=== PATIENT | male | born 1970 | race Caucasian/White ===

== ENCOUNTER 2018-06-16 13:59 | Emergency (ER) | payer BC ==
--- NOTE | 2018-06-16 15:41 | RAD REPORT ---
EXAM DESCRIPTION: CT - Head Brain Wo Cont - 06/16/2018 3:16 pm CLINICAL HISTORY: PAIN Headache, syncope COMPARISON: Head C Spine Mpr Wo Con dated 03/22/2017 TECHNIQUE: All CT scans are performed using dose optimization technique as appropriate and may inclu de automated exposure control or mA/KV adjustment according to patient size. FINDINGS: No intracranial hemorrhage, hydrocephalus or extra-axial fluid collection.No areas of brai n edema or evidence of midline shift. The paranasal sinuses and mastoids are clear. The calvarium is intact. IMPRESSION: No acute intracranial abnormality.
[2018-06-16 15:57] LABS: Absolute Lymphocytes (CBC) 1.2 K/uL (0.7-4.9); Absolute Monocytes 0.7 K/uL (0.1-1.3); Absolute Neutrophil 6.7 K/uL (1.8-8.0); Basophils % 0.2 % (0-1.3); Eosinophils % 0.9 % (0-4.4); Hematocrit 42.9 % (39.6-49.0); Lymphocytes % 14.1 % (15.3-44.8); MCH 31.5 pg (27.0-35.0); MCV 90.2 fL (80-100); MPV 8.1 fL (7.6-11.3); Monocytes % 7.9 % (3.3-12.3); RBC Red Blood Cell Count 4.76 M/uL (4.33-5.43)
[2018-06-16 16:02] LABS: Protime INR 1.01
--- NOTE | 2018-06-16 16:37 | RAD REPORT ---
EXAM DESCRIPTION: RAD - Chest Single View - 06/16/2018 4:31 pm CLINICAL HISTORY: CHEST PAIN Chest pain. COMPARISON: Chest Single View dated 10/25/2016; Chest Single View dated 08/21/2016; Chest Single View dated 02/28/2016; CHEST SINGLE VIEW dated 12/22/2013 FINDINGS: Portable technique limits examination quality. The lungs are grossly clear. The heart is normal in size. No displaced fractures. IMPRESSION: No acute intrathoracic process suspected.
[2018-06-16 16:47] LABS: BUN Blood Urea Nitrogen 17 mg/dL (7-18); Bicarbonate 31 mmol/L (21-32); CKMB Creatine Kinase MB 1.2 ng/mL (0.3-3.6); Glucose Level 101 mg/dL (74-106); NT PRO-BNP 7 pg/mL (<125); Sodium Level 137 mmol/L (136-145); Troponin (Emerg Dept Use Only) < 0.02 ng/mL (0.0-0.045)
[2018-06-16 16:48] LABS: Creatine Phosphokinase 266 U/L (39-308); Magnesium 2.4 mg/dL (1.8-2.4); Potassium 4.9 mmol/L (3.5-5.1)
--- NOTE | 2018-06-16 17:20 | EDPHYS ---
Physician Documentation [facility] Name: Julius Capellan Age: 47 yrs Sex: Male : 1970 Arrival Date: 06/16/2018 Time: 14:03 Bed 26 Private MD: ED Physician Jac Gonzalez HPI: 06/16 17:07 This 47 yrs old Male presents to ER via Ambulatory with complaints of Chest kb Pain, Nausea, Neck Pain, <24hrs Old, Dizziness. 17:07 The patient presents with abdominal pain in the left upper quadrant. Onset: The kb symptoms/episode began/occurred this morning. The symptoms radiate to chest. Associated signs and symptoms: Pertinent positives: chest pain, dizziness, muscle cramps/spasms. The symptoms are described as crampy. Modifying factors: The symptoms are alleviated by nothing, the symptoms are aggravated by nothing. Severity of pain: At its worst the pain was moderate in the emergency department the pain is unchanged. The patient has not experienced similar symptoms in the past. The patient has not recently seen a physician. 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 Went inside to rest, but still had the symptoms after being inside for a while so he wanted to come get checked out.. Historical: - Allergies: 14:14 No Known Allergies; hj - Home Meds: 14:14 Suboxone [Active]; gemfibrozil 600 mg Oral tab 1 tab 2 times per day [Active]; losartan-hydrochlorothiazide 100-25 mg oral tab 1 tab once daily [Active]; - PMHx: 14:14 Hyperlipidemia; Hypertension; hj - PSHx: 14:14 Hernia repair; L knee; hj - Immunization history:: Adult Immunizations up to date. - Social history:: Smoking status: Patient uses tobacco products, smokes one pack cigarettes per day. Patient uses alcohol, occasionally. - Ebola Screening: : Patient negative for fever greater than or equal to 101.5 degrees Fahrenheit, and additional compatible Ebola Virus Disease symptoms Patient denies exposure to infectious person Patient denies travel to an Ebola-affected area in the 21 days before illness onset. ROS: 17:06 Constitutional: Negative for fever, chills, and weight loss, ENT: Negative for injury, kb pain, and discharge, Neck: Negative for injury, pain, and swelling, Cardiovascular: Negative for chest pain, palpitations, and edema, Respiratory: Negative for shortness of breath, cough, wheezing, and pleuritic chest pain, : Negative for injury, bleeding, discharge, and swelling, MS/Extremity: Negative for injury and deformity, Skin: Negative for injury, rash, and discoloration. 17:06 Abdomen/GI: Positive for abdominal pain. 17:06 Back: Positive for muscle cramps/spasms. 17:06 Neuro: Positive for dizziness. Exam: 17:06 Constitutional: This is a well developed, well nourished patient who is awake, alert, kb and in no acute distress. Head/Face: Normocephalic, atraumatic. Eyes: Pupils equal round and reactive to light, extra-ocular motions intact. Lids and lashes normal. Conjunctiva and sclera are non-icteric and not injected. Cornea within normal limits. Periorbital areas with no swelling, redness, or edema. ENT: Nares patent. No nasal discharge, no septal abnormalities noted. Tympanic membranes are normal and external auditory canals are clear. Oropharynx with no redness, swelling, or masses, exudates, or evidence of obstruction, uvula midline. Mucous membranes moist. Chest/axilla: Normal chest wall appearance and motion. Nontender with no deformity. No lesions are appreciated. Cardiovascular: Regular rate and rhythm with a normal S1 and S2. No gallops, murmurs, or rubs. Normal PMI, no JVD. No pulse deficits. Respiratory: Lungs have equal breath sounds bilaterally, clear to auscultation and percussion. No rales, rhonchi or wheezes noted. No increased work of breathing, no retractions or nasal flaring. Abdomen/GI: Soft, non-tender, with normal bowel sounds. No distension or tympany. No guarding or rebound. No evidence of tenderness throughout. Skin: Warm, dry with normal turgor. Normal color with no rashes, no lesions, and no evidence of cellulitis. MS/ Extremity: Pulses equal, no cyanosis. Neurovascular intact. Full, normal range of motion. Neuro: Awake and alert, GCS 15, oriented to person, place, time, and situation. Cranial nerves II-XII grossly intact. Motor strength 5/5 in all extremities. Sensory grossly intact. Cerebellar exam normal. Normal gait. Vital Signs: 14:15 BP 109 / 70; Pulse 98; Resp 18; Temp 98.0(O); Pulse Ox 96% on R/A; Weight 118.39 kg; hj Height 6 ft. 1 in. (185.42 cm); Pain 3/10; 15:00 BP 94 / 73 Supine; Pulse 93 LA; mb4 15:04 BP 112 / 85 LA Sitting (auto/lg); Pulse 86 MON; mb4 15:08 BP 121 / 88 LA Standing (auto/lg); Pulse 94 MON; mb4 16:08 BP 108 / 81 LA Sitting (auto/lg); Pulse 77; mb4 17:17 BP 132 / 93; Pulse 83; Resp 18; Pulse Ox 97% on R/A; tl3 14:15 Body Mass Index 34.43 (118.39 kg, 185.42 cm) hj MDM: 14:32 Patient medically screened. kb 17:06 Data reviewed: vital signs, nurses notes. Data interpreted: Pulse oximetry: on room air kb is 96 %. Interpretation: normal. 17:11 Counseling: I had a detailed discussion with the patient and/or guardian regarding: the kb historical points, exam findings, and any diagnostic results supporting the discharge/admit diagnosis, lab results, radiology results, the need for outpatient follow up, a family practitioner, to return to the emergency department if symptoms worsen or persist or if there are any questions or concerns that arise at home. 17:19 ED course: Pt reports symptoms have resolved. Reports he is just tired now. kb 06/16 14:41 Order name: Basic Metabolic Panel kb 06/16 14:41 Order name: CBC with Diff kb 06/16 14:41 Order name: Magnesium kb 06/16 14:41 Order name: NT PRO-BNP kb 06/16 14:41 Order name: PT-INR kb 06/16 14:41 Order name: Troponin (emerg Dept Use Only) kb 06/16 14:41 Order name: CPK kb 06/16 14:41 Order name: Ckmb kb 06/16 15:13 Order name: Basic Metabolic Panel; Complete Time: 16:49 EDMS 06/16 15:14 Order name: CBC with Automated Diff; Complete Time: 15:59 EDMS 06/16 15:14 Order name: Magnesium; Complete Time: 16:49 EDMS 06/16 15:14 Order name: NT PRO-BNP; Complete Time: 16:49 EDMS 06/16 15:14 Order name: Protime (+INR); Complete Time: 16:12 EDMS 06/16 15:14 Order name: Troponin (Emerg Dept Use Only); Complete Time: 16:49 EDMS 06/16 14:21 Order name: EKG - Nurse/Tech; Complete Time: 14:22 hj 06/16 14:41 Order name: XRAY Chest (1 view); Complete Time: 16:38 kb 06/16 14:41 Order name: EKG; Complete Time: 15:14 kb 06/16 14:41 Order name: Cardiac monitoring; Complete Time: 14:55 kb 06/16 14:41 Order name: IV Saline Lock; Complete Time: 15:56 kb 06/16 14:41 Order name: Labs collected and sent; Complete Time: 15:56 kb 06/16 14:41 Order name: O2 Per Protocol; Complete Time: 14:55 kb 06/16 14:41 Order name: O2 Sat Monitoring; Complete Time: 14:56 kb 06/16 14:41 Order name: Orthostatics; Complete Time: 15:12 kb 06/16 15:01 Order name: Head Brain Wo Cont; Complete Time: 15:58 EDMS 06/16 15:14 Order name: Creatine Phosphokinase; Complete Time: 16:49 EDMS 06/16 15:14 Order name: CKMB Creatine Kinase MB; Complete Time: 16:49 EDMS Administered Medications: No medications were administered Disposition: 06/17 09:56 Co-signature as Attending Physician, Jac Gonzalez MD. ma2 Disposition: 06/16/18 17:19 Discharged to Home. Impression: Muscle spasm, Upper abdominal pain, unspecified, Dizziness and giddiness. - Condition is Stable. - Discharge Instructions: Abdominal Pain, Adult, Jinx-jf-[id number], Heat Exhaustion Information, Dizziness, Wjke-ko-Xkay. - Medication Reconciliation Form, Thank You Letter, Antibiotic Education, Prescription Opioid Use form. - Follow up: Emergency Department; When: As needed; Reason: Worsening of condition. Follow up: Private Physician; When: 2 - 3 days; Reason: Recheck today's complaints, Continuance of care, Re-evaluation by your physician. Signatures: Dispatcher [employer] [facility] Blanca Jain, GENERATION MECHANIC HELPER-C GENERATION MECHANIC HELPER-CkBilly Spaulding, RN RN hj Jac Gonzalez MD MD ma2 Abilio Vargas, RN RN mg2 Corrections: (The following items were deleted from the chart) 06/16 15:16 15:14 Head Brain Wo Cont+CT.RAD.BRZ ordered. [facility] 18:08 17:19 06/16/2018 17:19 Discharged to Home. Impression: Muscle spasm; Upper abdominal mg2 pain, unspecified; Dizziness and giddiness. Condition is Stable. Discharge Instructions: Abdominal Pain, Adult, Chqd-mw-Yuja, Heat Exhaustion Information, Dizziness, [id number]. Forms are Medication Reconciliation Form, Thank You Letter, Antibiotic Education, Prescription Opioid Use. Follow up: Emergency Department; When: As needed; Reason: Worsening of condition. Follow up: Private Physician; When: 2 - 3 days; Reason: Recheck today's complaints, Continuance of care, Re-evaluation by your physician. kb
--- NOTE | 2018-06-16 17:20 | ER ---
Nurse's Notes [facility] Name: Julius Capellan Age: 47 yrs Sex: Male : 1970 Arrival Date: 06/16/2018 Time: 14:03 Bed 26 Private MD: Diagnosis: Muscle spasm;Upper abdominal pain, unspecified;Dizziness and giddiness Presentation: 06/16 14:09 Presenting complaint: Patient states: an hour ago, been working outside when i got hj dizzy, got muscle cramps, and abd cramps on my L upper abd; reports nausea;. Transition of care: patient was not received from another setting of care. Onset of symptoms was June 16, 2018. Risk Assessment: Do you want to hurt yourself or someone else? Patient reports no desire to harm self or others. Initial Sepsis Screen: Does the patient meet any 2 criteria? No. Patient's initial sepsis screen is negative. Does the patient have a suspected source of infection? No. Patient's initial sepsis screen is negative. Care prior to arrival: None. 14:09 Method Of Arrival: Ambulatory 14:09 Acuity: [place] 3 hj Triage Assessment: 14:14 General: Appears in no apparent distress. uncomfortable, Behavior is calm, cooperative, hj appropriate for age. Pain: Complains of pain in abdomen. Cardiovascular: Capillary refill < 3 seconds Patient's skin is warm and dry. Historical: - Allergies: 14:14 No Known Allergies; hj - Home Meds: 14:14 Suboxone [Active]; gemfibrozil 600 mg Oral tab 1 tab 2 times per day [Active]; hj losartan-hydrochlorothiazide 100-25 mg oral tab 1 tab once daily [Active]; - PMHx: 14:14 Hyperlipidemia; Hypertension; hj - PSHx: 14:14 Hernia repair; L knee; hj - Immunization history:: Adult Immunizations up to date. - Social history:: Smoking status: Patient uses tobacco products, smokes one pack cigarettes per day. Patient uses alcohol, occasionally. - Ebola Screening: : Patient negative for fever greater than or equal to 101.5 degrees Fahrenheit, and additional compatible Ebola Virus Disease symptoms Patient denies exposure to infectious person Patient denies travel to an Ebola-affected area in the 21 days before illness onset. Screenin:14 Abuse screen: Denies threats or abuse. Denies injuries from another. Nutritional hj screening: No deficits noted. Tuberculosis screening: No symptoms or risk factors identified. Fall Risk None identified. Assessment: 14:15 Pain: Pain radiates to back Pain began 1 hour ago. hj 14:56 Also complains of diaphoresis. General: Appears in no apparent distress. comfortable, tl3 well groomed, well developed, well nourished, Behavior is calm, cooperative, appropriate for age. Neuro: Level of Consciousness is awake, alert, obeys commands, Oriented to person, place, time, situation, Appropriate for age. Cardiovascular: Patient's skin is warm and dry. Respiratory: Airway is patent Respiratory effort is even, unlabored, Respiratory pattern is regular, symmetrical. GI: Abdomen is round. : No deficits noted. No signs and/or symptoms were reported regarding the genitourinary system. EENT: No deficits noted. No signs and/or symptoms were reported regarding the EENT system. Derm: No deficits noted. No signs and/or symptoms reported regarding the dermatologic system. Musculoskeletal: Reports has been doing physical work for the several days. 17:17 Reassessment: Patient appears in no apparent distress at this time. No changes from tl3 previously documented assessment. Patient and/or family updated on plan of care and expected duration. Pain level reassessed. Patient is alert, oriented x 3, equal unlabored respirations, skin warm/dry/pink. 17:45 Reassessment: Patient appears in no apparent distress at this time. No changes from mg2 previously documented assessment. Patient and/or family updated on plan of care and expected duration. Pain level reassessed. Patient is alert, oriented x 3, equal unlabored respirations, skin warm/dry/pink. Vital Signs: 14:15 BP 109 / 70; Pulse 98; Resp 18; Temp 98.0(O); Pulse Ox 96% on R/A; Weight 118.39 kg; hj Height 6 ft. 1 in. (185.42 cm); Pain 3/10; 15:00 BP 94 / 73 Supine; Pulse 93 LA; mb4 15:04 BP 112 / 85 LA Sitting (auto/lg); Pulse 86 MON; mb4 15:08 BP 121 / 88 LA Standing (auto/lg); Pulse 94 MON; mb4 16:08 BP 108 / 81 LA Sitting (auto/lg); Pulse 77; mb4 17:17 BP 132 / 93; Pulse 83; Resp 18; Pulse Ox 97% on R/A; tl3 14:15 Body Mass Index 34.43 (118.39 kg, 185.42 cm) hj ED Course: 14:03 Patient arrived in ED. mr 14:12 Triage completed. hj 14:15 Arm band placed on left wrist. hj 14:15 court recording monitor on. Pulse ox on. NIBP on. hj 14:15 Patient has correct armband on for positive identification. Placed in gown. Bed in low hj position. Call light in reach. Side rails up X 1. 14:15 Patient maintains SpO2 saturation greater than 95% on room air. hj 14:21 EKG done, by ED staff. hj 14:32 Blanca Jain FNP-C is PHCP. kb 14:32 Jac Gonzalez MD is Attending Physician. kb 14:44 Vanessa Watters, RN is Primary Nurse. tl3 14:56 No provider procedures requiring assistance completed. tl3 15:[address] tl3 15:16 Head Brain Wo Cont In Process Unspecified. EDMS 15:49 Inserted saline lock: 20 gauge in right antecubital area, using aseptic technique. mb4 Blood collected. 15:50 Warm blanket given. mb4 15:50 Initial lab(s) drawn, by me, sent to lab. mb4 16:30 X-ray completed. Portable x-ray completed in exam room. Patient tolerated procedure la2 well. 16:31 XRAY Chest (1 view) In Process Unspecified. EDMS 17:14 Basic Metabolic Panel Sent. tl3 17:14 CBC with Diff Sent. tl3 17:16 Magnesium Sent. tl3 17:16 NT PRO-BNP Sent. tl3 17:16 PT-INR Sent. tl3 17:16 Troponin (emerg Dept Use Only) Sent. tl3 17:17 Nurse Practitioner and/or Physician Deburrer Machine to see patient. Stephanie at bedside tl3 discussing POC. 17:45 IV discontinued, intact, bleeding controlled, No redness/swelling at site. Pressure mg2 dressing applied. Administered Medications: No medications were administered Outcome: 17:19 Discharge ordered by . kb 17:45 Discharged to home ambulatory. mg2 17:45 Condition: stable 17:45 Discharge instructions given to patient, family, Instructed on discharge instructions, follow up and referral plans. Demonstrated understanding of instructions, follow-up care. 18:08 Patient left the ED. mg2 Signatures: Dispatcher [employer] EDBlanca Stanley, OLIVIA LOPEZ-Jalyn Adler mr NicolasBilly, RN RN hj Michelle aBrger la2 Vanessa Watters RN RN tl3 Abilio Vargas RN RN mg2 Coni Shanks4
--- NOTE | 2018-06-17 10:06 | EKG ---
Test Date: 2018-06-16 Test Time: 14:19:33 Plating Department Helper: SHARI MEASUREMENT RESULTS: Intervals: Rate: 94 DC: 168 QRSD: 106 QT: 366 QTc: 457 [place]: P: 49 DC: 168 QRS: -48 T: 54 INTERPRETIVE STATEMENTS: Normal sinus rhythm Left anterior fascicular block Abnormal ECG Compared to ECG 10/25/2016 22:50:51 Left anterior fascicular block now present T-wave abnormality no longer present Electronically Signed On 06-17-18 10:05:52 CDT by Aryan Mills
[2018-06-18 14:00] VITALS: BP 132/93; TEMP 98; O2SAT 97
== END 2018-06-16 18:08 | disposition home or self-care (01) ==
LOC: ER 13:59
DX: M62.838 Other muscle spasm (principal); R42 Dizziness and giddiness; I10 Essential (primary) hypertension; E78.5 Hyperlipidemia, unspecified; F17.210 Nicotine dependence, cigarettes, uncomplicated
CPT/HCPCS: 36415; 70450; 71045; 80048; 82550; 82553; 83735; 83880; 84484; 85025; 85610; 93005; 99285

== ENCOUNTER → 2019-04-15 | Emergency (ER) | payer BC ==
[~2019-04-15] MED LIST: ACETAMINOPHEN 500 MG TAB PO PRN; ALPRAZOLAM 0.25 MG TABLET PO PRN; ASPIRIN 81 MG CHEWABLE TABLET ONE; ASPIRIN EC 81 MG TAB PO SCH; ENOXAPARIN 100 MG/ML SYR SQ ONE; ENOXAPARIN 40 MG/0.4 ML SQ SCH; METOPROLOL TAR 25 MG TAB PO SCH; METOPROLOL TAR 50 MG TAB ONE; MORPHINE 4 MG/ML SYR IV PRN; MORPHINE 4 MG/ML SYR ONE; NS KCL 20MEQ 1,000 ML IV ONE; ONDANSETRON 4 MG/2 ML VIAL ONE; PANTOPRAZOLE 40 MG INJ ONE; POTASSIUM 25 MEQ EFFERV TAB ONE
--- OUTSIDE RECORDS SUMMARY | 2019-04-15 20:56 | XMS REPORT | Summary of Care ---
:1970 Author Organization [facility] - Health Address [address] [place] [id number] Care Team Providers Name Role Phone Pcp, Patient Does Not Have A Primary Care Provider Reason for Visit Reason Comments Medication Problem out of losartan hctz Auth/Cert Status Reason Specialty Diagnoses / Referred By Referred To Procedures Contact Contact [facility] [address] [place] [address] [place] [address] Encounter Details Date Type Department Care Team Description 04/09/2019 Emergency [facility] Lucy Wall, Essential hypertension (Primary Dx); Department MD Medication refill [address] [place] [address] [address] [place] [address] [id number] [place], [place] [id number] Allergies No Known Allergiesdocumented as of this encounter (statuses as of 04/09/2019) Medications Medication Sig Dispensed Refills Start Date End Date Status ibuprofen (MOTRIN IB) Take 2 tablets 30 tablet 0 11/07/2017 Active 200 mg tablet by mouth every 6 (six) hours as needed for Pain (scale 1-3) for up to [address]. [address] under 0 Active HCL/NALOXONE HCL the tongue. (SUBOXONE SL) gemfibrozil (LOPID) 600 Take 1 tablet 60 tablet 1 06/04/2018 Active mg tablet by mouth 2 (two) times daily before breakfast and dinner. LOVAZA, [id number] Take 2 capsules 120 capsule 1 06/04/2018 Active ethyl esters, (LOVAZA) 1 by mouth 2 gram capsule (two) times daily. traMADOL (ULTRAM) 50 mg Take 1 tablet 20 tablet 0 08/14/2018 Active tablet by mouth every 6 (six) hours as needed for Pain (scale 4-6). losartan-hydrochlorothia Take 1 tablet 60 tablet 1 10/15/2018 Active zide 100-25 mg per by mouth daily. tabletIndications: Asymptomatic hypertension methylPREDNISolone Take by mouth 21 Each 0 12/18/2018 Active (MEDROL, YUKI,) 4 mg SEE-INSTRUCTION tabletsIndications: S. follow Acute non-recurrent package maxillary sinusitis directions losartan-hydrochlorothia Take 1 tablet 30 tablet 0 04/09/2019 Active zide 100-25 mg per by mouth daily. tabletIndications: Essential hypertension, Medication refill documented as of this encounter (statuses as of 04/09/2019) Active Problems No known active problemsdocumented as of this encounter (statuses as of 2018) Social History Tobacco Use Types Packs/Day Years Used Date Never Smoker Smokeless Tobacco: Never Used Alcohol Use Drinks/Week oz/Week Comments No Sex Assigned at Date Recorded Not on file Job Start Date Occupation Industry Not on file Not on file Not on file Travel History Travel Start Travel End No recent travel history available. documented as of this encounter Last Filed Vital Signs Vital Sign Reading Time Taken Comments Blood Pressure 107/74 04/09/2019 9:41 PM CDT Pulse 68 04/09/2019 9:41 PM CDT Temperature 36.9 C (98.4 F) 04/09/2019 9:41 PM CDT Respiratory Rate 16 04/09/2019 9:41 PM CDT Oxygen Saturation - - Inhaled Oxygen Concentration - - Weight 117.9 kg (260 lb) 04/09/2019 9:41 PM CDT Height - - Body Mass Index 34.3 12/18/2018 9:45 PM CDT documented in this encounter Discharge Instructions Lucy Wharton MD - 04/09/2019 DIAGNOSIS Diagnoses that have been ruled out: None Diagnoses that are still under consideration: None Final diagnoses: Essential hypertension Medication refill NO LIFE-THREATENING FINDINGS ON TODAY'S EXAM. PROCEDURES IN THE ER TODAY: No orders of the defined types were placed in this encounter. MEDICATIONS ADMINISTERED IN THE ER TODAY AND DISCHARGE MEDICATIONS: No orders of the defined types were placed in this encounter. FOLLOW-UP RECOMMENDATIONS: RECOMMEND FOLLOW-UP WITH A PRIMARY CARE PROVIDER OR SPECIALIST IN 2-5 DAYS, ESPECIALLY IF NO IMPROVEMENT IN SYMPTOMS. MAY FOLLOW-UP WITH A PROVIDER OF YOUR CHOICE, SUCH : 1. A PHYSICIAN OF YOUR CHOICE 2. [facility], . LOCATIONS IN [facility] 3. [facility], [address], [place]; [phone] OR, IF YOU WISH TO FOLLOW-UP WITHIN THE [facility], MAY TRY THESE OPTIONS (CLINIC APPOINTMENTS AVAILABLE ON [id number] BASIS): 1. SCHEDULE AN APPOINTMENT ONLINE AT [facility] 2. OR CALL THE [facility] ACCESS CENTER AT OR 3. OR CALL YOUR [facility] PHYSICIAN'S OFFICE DIRECTLY IF YOU ARE ALREADY AN ESTABLISHED [facility] PATIENT. RETURN TO ER FOR WORSENING OF SYMPTOMS documented in this encounter Plan of Treatment Health Maintenance Due Date Last Done Comments DTaP,Tdap,and Td Vaccines ( - 1991 Tdap) INFLUENZA VACCINE 05/04/2019 PNEUMOCOCCAL 0-64 YEARS COMBINED Aged Out No longer eligible based on SERIES patient's age to complete this topic documented as of this encounter Procedures Procedure Name Priority Date/Time Associated Diagnosis Comments NOTICE OF PRIVACY Routine 04/09/2019 9:26 PM CDT PRACTICES CONSENT/REFUSAL FOR Routine 04/09/2019 9:24 PM CDT DIAGNOSIS AND TREATMENT documented in this encounter Results Not on filedocumented in this encounter Visit Diagnoses Diagnosis Essential hypertension - Primary Unspecified essential hypertension Medication refill Issue of repeat prescriptions documented in this encounter Insurance Payer Benefit Plan Subscriber ID Effective Dates Phone Address Type / Group [facility] [id number] 2017-Dimitri [phone] [address] PPO/[address] [place] [id number] [place] [address] [phone] (Work) documented as of this encounter Advance Directives Name Relationship Healthcare Agent Relationship Communication Zaina Capellan Spouse Primary healthcare agent
--- OUTSIDE RECORDS SUMMARY | 2019-04-15 20:56 | XMS REPORT ---
:1970 [facility] Address [address] [place] [address] [address] [place] [address] Care Team Providers Name Role Phone Unavailable Unavailable Unavailable Problems This patient has no known problems. Allergies, Adverse Reactions, Alerts This patient has no known allergies or adverse reactions. Medications This patient has no known medications.
--- NOTE | 2019-04-15 21:29 | ER ---
Nurse's Notes [facility] Name: Julius Capellan Age: 48 yrs Sex: Male : 1970 Arrival Date: 04/15/2019 Time: 20:54 Bed 8 Private MD: Diagnosis: Chest pain, unspecified;Essential (primary) hypertension;Tobacco abuse counseling;Tobacco use;Obesity, unspecified;Hypokalemia Presentation: 04/15 21:03 Presenting complaint: Patient states: "I am having chest that goes up into my left jd3 shoulder.". Transition of care: patient was not received from another setting of care. Onset of symptoms was April 15, 2019. Risk Assessment: Do you want to hurt yourself or someone else? Patient reports no desire to harm self or others. Initial Sepsis Screen: Does the patient meet any 2 criteria? No. Patient's initial sepsis screen is negative. Does the patient have a suspected source of infection? No. Patient's initial sepsis screen is negative. Care prior to arrival: None. 21:03 Method Of Arrival: Wheelchair jd3 21:03 Acuity: [place] 3 jd3 Historical: - Allergies: 21:04 No Known Allergies; jd3 - Home Meds: 21:04 losartan-hydrochlorothiazide 100-25 mg Oral tab 1 tab once daily [Active]; Suboxone jd3 [Active]; - PMHx: 21:04 Hyperlipidemia; Hypertension; jd3 - PSHx: 21:04 Hernia repair; L knee; jd3 - Immunization history:: Adult Immunizations up to date. - Social history:: Smoking status: Patient uses tobacco products, smokes one pack cigarettes per day. - Ebola Screening: : Patient negative for fever greater than or equal to 101.5 degrees Fahrenheit, and additional compatible Ebola Virus Disease symptoms. - Family history:: not pertinent. Screenin:03 Abuse screen: Denies threats or abuse. Denies injuries from another. Nutritional ao screening: No deficits noted. Tuberculosis screening: No symptoms or risk factors identified. Fall Risk None identified. Assessment: 22:01 General: Appears in no apparent distress. comfortable, Behavior is calm, cooperative, ao appropriate for age. Pain: Complains of pain in chest Pain does not radiate. Pain began 2-3 days ago. Neuro: Level of Consciousness is awake, alert, obeys commands, Oriented to person, place, time, situation, Appropriate for age Moves all extremities. Full function Speech is normal, Facial symmetry appears normal. Cardiovascular: Capillary refill is > 3 seconds. Cardiovascular: Reports chest pain, nausea. Respiratory: Airway is patent Respiratory effort is even, unlabored, Respiratory pattern is regular, symmetrical. GI: Abdomen is round obese. : No signs and/or symptoms were reported regarding the genitourinary system. EENT: No signs and/or symptoms were reported regarding the EENT system. Derm: Skin is intact, Skin is pink, warm \\T\\ dry. normal, Skin temperature is warm. Musculoskeletal: No signs and/or symptoms reported regarding the musculoskeletal system. 22:32 Reassessment: Patient appears in no apparent distress at this time. Patient and/or ao family updated on plan of care and expected duration. Pain level reassessed. Patient is alert, oriented x 3, equal unlabored respirations, skin warm/dry/pink. Dr Shaw at bedside talking to patient who is thinking to go home AMA. 23:20 Reassessment: Patient left AMA. Pt sign AMA for and Dr Shaw spoke to patient before ao he left. Patient was instructed to come back to ED if any problem occur or to follow up with PCP is no problem occur. Vital Signs: 21:04 BP 131 / 86; Pulse 82; Resp 17 S; Temp 97.6(TE); Pulse Ox 97% on R/A; Weight 120.2 kg jd3 (R); Height 5 ft. 11 in. (180.34 cm) (R); Pain 6/10; 22:00 BP 118 / 85 LA; Pulse 79; Resp 18; Pulse Ox 100% on R/A; ao 22:00 BP 125 / 82 RA; Pulse 84; ao 22:33 BP 122 / 84; Pulse 83; Resp 18; Pulse Ox 100% on R/A; Pain 0/10; ao 21:04 Body Mass Index 36.96 (120.20 kg, 180.34 cm) jd3 ED Course: 20:54 Patient arrived in ED. ds1 21:03 Abhi Tyler, OZZY is Primary Nurse. rr5 21:03 Triage completed. jd3 21:05 Arm band placed on. EKG completed in triage. Results shown to MD. jd3 21:11 El Valentino MD is Attending Physician. gs 21:12 Attending Physician role handed off by El Valentino MD [facility] 21:12 Eliezer Shaw MD is Attending Physician. branden 21:27 Jac Vitale MD is Hospitalizing Provider. branden 21:46 XRAY Chest (1 view) In Process Unspecified. EDMS 22:03 Patient has correct armband on for positive identification. panel monitor on. Pulse ao ox on. NIBP on. 22:03 Patient maintains SpO2 saturation greater than 95% on room air. ao 23:15 No provider procedures requiring assistance completed. IV discontinued, intact, ao bleeding controlled, No redness/swelling at site. Pressure dressing applied. Administered Medications: 20:00 Drug: Aspirin Chewable Tablet 324 mg Route: PO; ao 22:35 Follow up: Response: No adverse reaction ao 20:00 Drug: morphine 4 mg {Note: Rass 0.} Route: IVP; Site: left antecubital; ao 22:35 Follow up: Response: No adverse reaction; RASS: Alert and Calm (0) ao 21:40 Drug: Lovenox 1 mg/kg {Note: Administered 100.00 Mg as max dose allow per hospital ao protocol.} Route: Sub-Q; Site: abdomen; 22:35 Follow up: Response: No adverse reaction ao 21:58 Not Given (Patient Refused): Lopressor (metoprolol TARTRATE) 50 mg PO once ao 21:58 Drug: ProTONIX 40 mg Route: IVP; Site: left antecubital; ao 22:35 Follow up: Response: No adverse reaction ao 21:59 Drug: Zofran 4 mg Route: IVP; Site: left antecubital; ao 22:36 Follow up: Response: No adverse reaction ao 22:36 Drug: Potassium Effervescent Tablet 50 mEq Route: PO; ao 23:29 Follow up: Response: No adverse reaction ao 22:36 Drug: NS 0.9% with KCl 20 mEq/L 1000 ml Route: IV; Rate: 125 ml/hr; Site: left ao antecubital; 23:29 Follow up: IV Status: Left AMA ao Outcome: 21:28 Decision to Hospitalize by Provider. branden 23:15 AMA AMA form signed ao 23:15 Condition: stable 23:15 Instructed on follow up and referral plans. Came back if chest pain return and Follow up with PCP if no problem occur 23:28 Patient left the ED. ao Signatures: Dispatcher [employer] EDEliezer Rudolph MD MD cha Sanford, Demi ds1 Graeme Richardson RN RN ao El Valentino MD MD gs Davies, Jonathon, RN RN jd3 Abhi Tyler RN RN rr5 Corrections: (The following items were deleted from the chart) 22:15 21:40 Lovenox 1 mg/kg Sub-Q in abdomen ao ao 22:36 20:00 morphine 4 mg IVP in left antecubital ao ao
--- NOTE | 2019-04-15 21:30 | EDPHYS ---
Physician Documentation [facility] Name: Julius Capellan Age: 48 yrs Sex: Male : 1970 Arrival Date: 04/15/2019 Time: 20:54 Bed 8 Private MD: ED Physician Eliezer Shaw HPI: 04/15 21:23 This 48 yrs old Male presents to ER via Wheelchair with complaints of Chest branden Pain. 21:23 The patient or guardian reports chest pain that is located primarily in the substernal branden area, anterior chest wall, left. Onset: today. The pain radiates to Associated signs and symptoms: The patient has no apparent associated signs or symptoms. The chest pain is described as causing indigestion, a pressure, sharp. Duration: The patient or guardian reports a single episode, that is still ongoing. Modifying factors: The symptoms are alleviated by nothing. the symptoms are aggravated by nothing. Severity of pain: At its worst the pain was mild moderate in the emergency department the pain has improved moderately. The patient has experienced similar episodes in the past, several times. Historical: - Allergies: 21:04 No Known Allergies; jd3 - Home Meds: 21:04 losartan-hydrochlorothiazide 100-25 mg Oral tab 1 tab once daily [Active]; Suboxone jd3 [Active]; - PMHx: 21:04 Hyperlipidemia; Hypertension; jd3 - PSHx: 21:04 Hernia repair; L knee; jd3 - Immunization history:: Adult Immunizations up to date. - Social history:: Smoking status: Patient uses tobacco products, smokes one pack cigarettes per day. - Ebola Screening: : Patient negative for fever greater than or equal to 101.5 degrees Fahrenheit, and additional compatible Ebola Virus Disease symptoms. - Family history:: not pertinent. ROS: 21:23 Constitutional: Negative for fever, chills, and weight loss, Eyes: Negative for injury, branden pain, redness, and discharge, ENT: Negative for injury, pain, and discharge, Neck: Negative for injury, pain, and swelling, Respiratory: Negative for shortness of breath, cough, wheezing, and pleuritic chest pain, Abdomen/GI: Negative for abdominal pain, nausea, vomiting, diarrhea, and constipation, Back: Negative for injury and pain, : Negative for injury, bleeding, discharge, and swelling, MS/Extremity: Negative for injury and deformity, Skin: Negative for injury, rash, and discoloration, Neuro: Negative for headache, weakness, numbness, tingling, and seizure, Psych: Negative for depression, anxiety, suicide ideation, homicidal ideation, and hallucinations, Allergy/Immunology: Negative for hives, rash, and allergies, Endocrine: Negative for neck swelling, polydipsia, polyuria, polyphagia, and marked weight changes, Hematologic/Lymphatic: Negative for swollen nodes, abnormal bleeding, and unusual bruising. 21:23 Cardiovascular: Positive for chest pain, of the chest. Exam: 21:23 Constitutional: This is a well developed, well nourished patient who is awake, alert, branden and in no acute distress. Head/Face: Normocephalic, atraumatic. Eyes: Pupils equal round and reactive to light, extra-ocular motions intact. Lids and lashes normal. Conjunctiva and sclera are non-icteric and not injected. Cornea within normal limits. Periorbital areas with no swelling, redness, or edema. ENT: Nares patent. No nasal discharge, no septal abnormalities noted. Tympanic membranes are normal and external auditory canals are clear. Oropharynx with no redness, swelling, or masses, exudates, or evidence of obstruction, uvula midline. Mucous membranes moist. Neck: Trachea midline, no thyromegaly or masses palpated, and no cervical lymphadenopathy. Supple, full range of motion without nuchal rigidity, or vertebral point tenderness. No Meningismus. Chest/axilla: Normal chest wall appearance and motion. Nontender with no deformity. No lesions are appreciated. Cardiovascular: Regular rate and rhythm with a normal S1 and S2. No gallops, murmurs, or rubs. Normal PMI, no JVD. No pulse deficits. Respiratory: Lungs have equal breath sounds bilaterally, clear to auscultation and percussion. No rales, rhonchi or wheezes noted. No increased work of breathing, no retractions or nasal flaring. Abdomen/GI: Soft, non-tender, with normal bowel sounds. No distension or tympany. No guarding or rebound. No evidence of tenderness throughout. Back: No spinal tenderness. No costovertebral tenderness. Full range of motion. Male : Normal genitalia with no discharge or lesions. Skin: Warm, dry with normal turgor. Normal color with no rashes, no lesions, and no evidence of cellulitis. MS/ Extremity: Pulses equal, no cyanosis. Neurovascular intact. Full, normal range of motion. Neuro: Awake and alert, GCS 15, oriented to person, place, time, and situation. Cranial nerves II-XII grossly intact. Motor strength 5/5 in all extremities. Sensory grossly intact. Cerebellar exam normal. Normal gait. Psych: Awake, alert, with orientation to person, place and time. Behavior, mood, and affect are within normal limits. 21:27 Musculoskeletal/extremity: DVT Exam: No signs of deep vein thrombosis. no pain, no branden swelling, no tenderness, negative Homans' sign noted on exam, no appreciated bluish discoloration, no erythema, no increased warmth. Vital Signs: 21:04 BP 131 / 86; Pulse 82; Resp 17 S; Temp 97.6(TE); Pulse Ox 97% on R/A; Weight 120.2 kg jd3 (R); Height 5 ft. 11 in. (180.34 cm) (R); Pain 6/10; 22:00 BP 118 / 85 LA; Pulse 79; Resp 18; Pulse Ox 100% on R/A; ao 22:00 BP 125 / 82 RA; Pulse 84; ao 22:33 BP 122 / 84; Pulse 83; Resp 18; Pulse Ox 100% on R/A; Pain 0/10; ao 21:04 Body Mass Index 36.96 (120.20 kg, 180.34 cm) jd3 MDM: 21:12 Patient medically screened. [facility] 21:26 Data reviewed: vital signs, nurses notes, lab test result(s), EKG, radiologic studies, branden plain films. 04/15 21:23 Order name: Basic Metabolic Panel; Complete Time: 22:03 [facility] 04/15 21:23 Order name: CBC with Diff; Complete Time: 21:52 [facility] 04/15 21:23 Order name: LFT's; Complete Time: 22:03 [facility] 04/15 21:23 Order name: Magnesium; Complete Time: 22:03 [facility] 04/15 21:23 Order name: NT PRO-BNP; Complete Time: 22:03 [facility] 04/15 21:23 Order name: PT-INR; Complete Time: 21:52 [facility] 04/15 21: Order name: Troponin (emerg Dept Use Only); Complete Time: 22:03 [facility] 04/15 21:23 Order name: XRAY Chest (1 view) [facility] 04/15 21:23 Order name: Lipase; Complete Time: 22:03 [facility] 04/15 23:10 Order name: Lipid Profile [facility] 04/15 23:10 Order name: Troponin I [facility] 04/15 21:23 Order name: EKG; Complete Time: 21:25 [facility] 04/15 21:23 Order name: Cardiac monitoring; Complete Time: 21:24 [facility] 04/15 21:23 Order name: EKG - Nurse/Tech; Complete Time: 21:24 [facility] 04/15 21:23 Order name: IV Saline Lock; Complete Time: 21:24 [facility] 04/15 23:09 Order name: CONS Physician Consult [facility] 04/15 23:10 Order name: Heart Healthy [facility] 04/15 21:23 Order name: Labs collected and sent; Complete Time: 21:24 [facility] 04/15 21:23 Order name: O2 Per Protocol; Complete Time: 21:24 [facility] 04/15 21:23 Order name: O2 Sat Monitoring; Complete Time: 21:24 [facility] 04/15 21:23 Order name: Bilateral blood pressure; Complete Time: 21:58 [facility] Administered Medications: 20:00 Drug: Aspirin Chewable Tablet 324 mg Route: PO; ao 22:35 Follow up: Response: No adverse reaction ao 20:00 Drug: morphine 4 mg {Note: Rass 0.} Route: IVP; Site: left antecubital; ao 22:35 Follow up: Response: No adverse reaction; RASS: Alert and Calm (0) ao 21:40 Drug: Lovenox 1 mg/kg {Note: Administered 100.00 Mg as max dose allow per hospital ao protocol.} Route: Sub-Q; Site: abdomen; 22:35 Follow up: Response: No adverse reaction ao 21:58 Not Given (Patient Refused): Lopressor (metoprolol TARTRATE) 50 mg PO once ao 21:58 Drug: ProTONIX 40 mg Route: IVP; Site: left antecubital; ao 22:35 Follow up: Response: No adverse reaction ao 21:59 Drug: Zofran 4 mg Route: IVP; Site: left antecubital; ao 22:36 Follow up: Response: No adverse reaction ao 22:36 Drug: Potassium Effervescent Tablet 50 mEq Route: PO; ao 23:29 Follow up: Response: No adverse reaction ao 22:36 Drug: NS 0.9% with KCl 20 mEq/L 1000 ml Route: IV; Rate: 125 ml/hr; Site: left ao antecubital; 23:29 Follow up: IV Status: Left AMA ao Disposition: 04/15/19 21:28 Hospitalization ordered by Jac Vitale for Inpatient Admission. Preliminary diagnosis are Chest pain, unspecified, Essential (primary) hypertension, Tobacco abuse counseling, Tobacco use, Obesity, unspecified, Hypokalemia. - Bed requested for Telemetry/MedSurg (Inpatient). - Status is Inpatient Admission. ao - Condition is Stable. - Problem is new. - Symptoms have improved. UTI on Admission? No Signatures: Dispatcher [employer] EDMS Eliezer Shaw MD MD cha Ortiz, Alex RN RN Ikre Perales RN RN jd3 Corrections: (The following items were deleted from the chart) 22:06 21:28 Hospitalization Ordered by Jac Vitale MD for Inpatient Admission. Preliminary branden diagnosis is Chest pain, unspecified; Essential (primary) hypertension; Tobacco abuse counseling; Tobacco use; Obesity, unspecified. Bed requested for Telemetry/MedSurg (Inpatient). Status is Inpatient Admission. Condition is Stable. Problem is new. Symptoms have improved. UTI on Admission? No. branden 23:26 22:06 04/15/2019 21:28 Hospitalization Ordered by Jac Vitale MD for Inpatient ao Admission. Preliminary diagnosis is Chest pain, unspecified; Essential (primary) hypertension; Tobacco abuse counseling; Tobacco use; Obesity, unspecified; Hypokalemia. Bed requested for Telemetry/MedSurg (Inpatient). Status is Inpatient Admission. Condition is Stable. Problem is new. Symptoms have improved. UTI on Admission? No. branden 23:28 23:26 04/15/2019 21:28 Hospitalization Ordered by Jac Vitale MD for Inpatient ao Admission. Preliminary diagnosis is Chest pain, unspecified; Essential (primary) hypertension; Tobacco abuse counseling; Tobacco use; Obesity, unspecified; Hypokalemia. Bed requested for Telemetry/MedSurg (Inpatient). Status is Inpatient Admission. Condition is Stable. Problem is new. Symptoms have improved. UTI on Admission? No. ao
[2019-04-15 21:42] LABS: Absolute Lymphocytes (CBC) 2.1 K/uL (0.7-4.9); Basophils % 0.3 % (0-1.3); Hematocrit 40.8 % (39.6-49.0); Lymphocytes % 29.8 % (15.3-44.8); MPV 8.4 fL (7.6-11.3); RBC Red Blood Cell Count 4.56 M/uL (4.33-5.43)
[2019-04-15 21:57] LABS: ALT/SGPT 31 U/L (12-78); AST/SGOT 29 U/L (15-37); Alkaline Phosphatase 44 U/L (45-117); BUN Blood Urea Nitrogen 14 mg/dL (7-18); Bicarbonate 29 mmol/L (21-32); Bilirubin Direct 0.1 mg/dL (0-0.2); Bilirubin Total 0.6 mg/dL (0.2-1.0); Glucose Level 163 mg/dL (74-106); Lipase 117 U/L (73-393); Magnesium 1.9 mg/dL (1.8-2.4); NT PRO-BNP 12 pg/mL (<125); Potassium 3.1 mmol/L (3.5-5.1); Protein, Total 7.6 g/dL (6.4-8.2); Sodium Level 139 mmol/L (136-145); Troponin (Emerg Dept Use Only) < 0.02 ng/mL (0.0-0.045)
--- NOTE | 2019-04-15 22:13 | RAD REPORT ---
EXAM DESCRIPTION: RAD - Chest Single View - 04/15/2019 9:46 pm CLINICAL HISTORY: CHEST PAIN Chest pain. COMPARISON: Chest Single View dated 06/16/2018; Chest Single View dated 10/25/2016; Chest Single View dated 08/21/2016; Chest Single View dated 02/28/2016 FINDINGS: Portable technique limits examination quality. The lungs are grossly clear. The heart is normal in size. No displaced fractures. IMPRESSION: No acute intrathoracic process suspected.
[2019-04-15 23:34] VITALS: TEMP 97.6
[2019-04-15 23:35] VITALS: O2SAT 100
[2019-04-15 23:36] VITALS: BP 122/84
--- NOTE | 2019-04-16 09:49 | EKG ---
Test Date: 2019-04-15 Test Time: 21:09:08 Press And Blow Machine Tender: KARLY MEASUREMENT RESULTS: Intervals: Rate: 84 DC: 172 QRSD: 108 QT: 402 QTc: 475 [place]: P: 51 DC: 172 QRS: -22 T: 62 INTERPRETIVE STATEMENTS: Normal sinus rhythm Normal ECG Compared to ECG 06/16/2018 14:19:33 Left anterior fascicular block no longer present Electronically Signed On 04-16-19 09:47:48 CDT by Aryan Mills
== END ==
LOC: ER 20:53 → ERHOLD 23:23 → UNDOADMOB 23:23
DX: R07.9 Chest pain, unspecified (principal); I10 Essential (primary) hypertension; E66.9 Obesity, unspecified; Z68.36 Body mass index [BMI] 36.0-36.9, adult; E87.6 Hypokalemia; Z71.6 Tobacco abuse counseling; Z72.0 Tobacco use; E78.5 Hyperlipidemia, unspecified
CPT/HCPCS: 96361; 93005; 85025; 80048; 36415; 83735; 85610; 80076; 84484; 83690; 83880; 71045; 96375; 96372; 96374; 99285; C9113; J1650; J2405